=== PATIENT | female | born 1955 | race Caucasian/White ===

== ENCOUNTER → 2016-03-11 | Outpatient (CLI) | payer MEDICARE, MEDICAID ==
[2016-03-11 07:53] LABS: CALCIUM LEVEL 7.9 MG/DL (8.8-10.2); CREATININE FOR GFR 1.04 MG/DL (0.55-1.02); FREE T4 0.74 NG/DL (0.76-1.46); GLOMERULAR FILTRATION RATE 57.4 (>45); POTASSIUM SERUM 4.5 MEQ/L (3.5-5.1)
== END ==
LOC: M LAB 06:36
PROVIDERS: ATTEND Internal Medicine Cardiovascular Disease
DX: E78.2 Mixed hyperlipidemia (principal)

== ENCOUNTER → 2016-04-12 | Outpatient (CLI) | payer MEDICARE, MEDICAID ==
--- NOTE | 2016-04-12 16:06 | REPMRS ---
Patient History The patient states she had a clinical breast exam in 03/2016. Patient is postmenopausal, had previous chemotherapy at age 60, has history of bilateral lung and thyroid cancer at age 59, and is nulliparous. No known family history of cancer. Digital Woman Screen Mammo: April 12, 2016 - Exam #: [id number] Bilateral CC and MLO view(s) were taken. Technologist: Melonie White, Technologist Prior study comparison: February 24, 2015, digital woman screen mammo performed at [facility]. January 06, 2014, digital woman screen mammo performed at [facility]. December 14, 2010, digital mammo diagnostic bilateral, performed at [facility]. FINDINGS: There are scattered fibroglandular densities. There has been no change in the appearance of the mammogram from the prior studies. There is a mild amount of scattered fibroglandular density which is fairly symmetric. There is no interval development of dominant mass, architectural distortion, or clustered microcalcification suggestive of malignancy. ASSESSMENT: BI-RADS/ACR category 1 mammogram. Negative. Recommendation Routine screening mammogram in 1 year (for women over age 40). This mammogram was interpreted with the aid of an FDA-approved computer-aided dectection system. Electronically Signed By: Mo Perry MD 04/12/16 4000
== END ==
LOC: M WHC 14:17
PROVIDERS: ATTEND Nurse Practitioner Women's Health
DX: Z12.31 Encounter for screening mammogram for malignant neoplasm of breast (principal); Z78.0 Asymptomatic menopausal state; Z85.118 Personal history of other malignant neoplasm of bronchus and lung; Z85.850 Personal history of malignant neoplasm of thyroid; Z92.21 Personal history of antineoplastic chemotherapy; Z92.89 Personal history of other medical treatment

== ENCOUNTER → 2016-04-12 | Outpatient (REF) | payer MEDICARE, MEDICAID | LOC: M SFHCWAGY 14:55 | PROVIDERS: ATTEND Nurse Practitioner Women's Health | DX: Z12.4 Encounter for screening for malignant neoplasm of cervix (principal); N95.2 Postmenopausal atrophic vaginitis; Z12.31 Encounter for screening mammogram for malignant neoplasm of breast; Z78.0 Asymptomatic menopausal state; Z85.118 Personal history of other malignant neoplasm of bronchus and lung; Z85.850 Personal history of malignant neoplasm of thyroid; Z92.21 Personal history of antineoplastic chemotherapy; Z92.89 Personal history of other medical treatment | CPT/HCPCS: G0101; G0123; G0202 ==

== ENCOUNTER → 2016-04-13 | Outpatient (CLI) | payer MEDICARE, MEDICAID ==
[2016-04-13 09:19] LABS: FREE T4 0.77 NG/DL (0.76-1.46)
== END ==
LOC: M LAB 08:21
PROVIDERS: ATTEND Family Medicine
DX: E03.9 Hypothyroidism, unspecified (principal)

== ENCOUNTER → 2016-05-06 | Outpatient (CLI) | payer MEDICARE, MEDICAID ==
[~2016-05-06] MED LIST: ISOVUE-370 76% 100ML VIAL (Q9967) As Ordered ONE
--- NOTE | 2016-05-06 10:26 | REP ---
Clinical: Right upper lobe neoplasm. Comparison: 11/09/2015. Technique: Axial contrast enhanced images from the thoracic inlet to the upper abdomen using 100 ml Isovue 370 intravenous contrast material with coronal and sagittal re-formations. Findings: Right upper lobe mass measures approximately 3.6 cm maximal diameter with central surgical clip identified and essentially unchanged from prior examination. Small ill-defined nodules predominately noted in the right hemithorax remains stable. Fibroatelectatic changes in the left upper lobe and right lower lobe are also identified and remain stable. No new or increased mass lesion or nodule is identified. No consolidation. No pleural effusion/reaction or pneumothorax. No significant axillary, hilar, or mediastinal adenopathy is appreciated prevascular lymph nodes are stable and measure up to 9.5 mm diameter. Ascending thoracic aorta is stable and measures up to 4.1 cm maximal diameter. Atherosclerotic changes to the coronary arteries noted. Skeletal structures intact and without focal lesions. Liver appears normal. Impression: 1. Right upper lobe mass, scattered nodules, left upper lobe fibroatelectatic changes essentially unchanged. No new acute process. Signed by Zackary Georges MD 05/06/2016 10:17 A
== END ==
LOC: M RAD 09:02
PROVIDERS: ATTEND Internal Medicine
DX: C34.11 Malignant neoplasm of upper lobe, right bronchus or lung (principal)
CPT/HCPCS: 71260; Q9967

== ENCOUNTER → 2016-08-11 | Outpatient (CLI) | payer MEDICARE, MEDICAID ==
[2016-08-11 10:39] LABS: COMPLEMENT C4 13.7 MG/DL (10-40)
[2016-08-14 00:06] LABS: ALPHA 1 ANTITRYPSIN 157 mg/dL (90-200); D001-IgE D pteronyssinus <0.10 kU/L (Class 0); E001-IgE Cat Epith/Dander < 0.10 kU/L (Class 0); E005-IgE Dog Dander < 0.10 kU/L (Class 0); F002-IgE Milk < 0.10 kU/L (Class 0); F004-IgE Wheat < 0.10 kU/L (Class 0); F013-IgE Peanut < 0.10 kU/L (Class 0); F014-IgE Soybean < 0.10 kU/L (Class 0); F026-IgE Pork < 0.10 kU/L (Class 0); F027-IgE Beef < 0.10 kU/L (Class 0); F245-IgE Egg, Whole < 0.10 kU/L (Class 0); FX02-IgE Food Mix (Sea Foods) Negative (.); G002-IgE Bermuda Grass < 0.10 kU/L (Class 0); G008-IgE Kentucky Bluegrass < 0.10 kU/L (Class 0); M001-IgE Penicillium chrysogen < 0.10 kU/L (Class 0); M002 IgE Cladosporium herbaru < 0.10 kU/L (Class 0); M003 IgE Aspergillus fumigatu < 0.10 kU/L (Class 0); M006-IgE Alternaria alternata < 0.10 kU/L (Class 0); T001-IgE Maple/Box Elder < 0.10 kU/L (Class 0); T007-IgE Oak, White < 0.10 kU/L (Class 0); T008-IgE Elm, American < 0.10 kU/L (Class 0); T015-IgE Ash, White < 0.10 kU/L (Class 0); T041-IgE Hickory, White < 0.10 kU/L (Class 0); W001-IgE Ragweed, Short < 0.10 kU/L (Class 0); W009-IgE Plantain, English < 0.10 kU/L (Class 0); W014-IgE Pigweed, Rough < 0.10 kU/L (Class 0); W018-IgE Sheep Sorrel < 0.10 kU/L (Class 0)
== END ==
LOC: M WUC 08:25
PROVIDERS: ATTEND Allergy & Immunology
DX: J30.1 Allergic rhinitis due to pollen (principal); J32.0 Chronic maxillary sinusitis; H10.45 Other chronic allergic conjunctivitis; R05 Cough; J45.20 Mild intermittent asthma, uncomplicated

== ENCOUNTER → 2016-08-18 | Outpatient (CLI) | payer MEDICARE, MEDICAID ==
[2016-08-18 13:43] LABS: MEAN CORPUSCULAR HEMOGLOBIN 31.1 pg (27.0-33.0); MEAN CORPUSCULAR VOLUME 91.4 fl (80.0-96.0); RED CELL DISTRIBUTION WIDTH 12.1 % (11.5-14.5); WHITE BLOOD COUNT 6.6 K/mm3 (4.0-10.0)
[2016-08-18 14:06] LABS: ALBUMIN 3.8 GM/DL (3.2-5.2); ALBUMIN/GLOBULIN RATIO 0.93 (1.00-1.93); BILIRUBIN,TOTAL 0.3 MG/DL (0.2-1.0); CALCIUM LEVEL 8.5 MG/DL (8.8-10.2); CREATININE FOR GFR 1.05 MG/DL (0.55-1.02); GLOMERULAR FILTRATION RATE 56.7 (>45); POTASSIUM SERUM 4.2 MEQ/L (3.5-5.1); TOTAL PROTEIN 7.9 GM/DL (6.4-8.2)
--- NOTE | 2016-08-18 15:20 | REP ---
Clinical: Lung cancer. Technique: Axial contrast enhanced images from the thoracic inlet to the upper abdomen using 100 ml Isovue 370 intravenous contrast material with multiplanar re-formations. Comparison: 05/06/2016, 11/09/2015 Findings: The lung albrecht demonstrate diffuse chronic interstitial changes including chronic fibroatelectatic changes in the left upper lobe. The right upper lobe mass lesion appears relatively similar to prior examination dated 05/06/2016 but slight increase in size cannot be excluded. Small nodular density in the adjacent superior segment of the right lower lobe is unchanged. No definite new significant nodule or mass lesion is appreciated. No pleural effusion/reaction. No pneumothorax. Tracheobronchial tree is patent. Continued mediastinal and hilar adenopathy (right greater than left) is again noted with focal right hilar lymph node measuring 11 mm short-axis diameter. Mediastinum demonstrates atherosclerotic changes to the thoracic aorta and coronary arteries which remain stable. Mild aneurysmal dilatation to the ascending thoracic aorta again measures 4 cm maximal diameter. No pericardial effusion. Surrounding musculoskeletal structures demonstrate age-related degenerative changes without focal osseous abnormality. Impression: 1. The right upper lobe mass which surrounds the surgical clip is relatively stable although subtle increase in size from the recent prior examination cannot definitively be excluded. Subtle mediastinal and hilar adenopathy remains unchanged. 2. Remainder examination demonstrates diffuse chronic changes which remain stable. No new acute mediastinal or pleuroparenchymal process is appreciated. Signed by Zackary Georges MD 08/18/2016 03:13 P
== END ==
LOC: M RAD 13:01
PROVIDERS: ATTEND Internal Medicine
DX: C34.11 Malignant neoplasm of upper lobe, right bronchus or lung (principal)
CPT/HCPCS: 36415; 71260; 80053; 85027; Q9967

== ENCOUNTER → 2016-11-14 | Outpatient (CLI) | payer MEDICARE, MEDICAID ==
--- NOTE | 2016-11-14 10:28 | REP ---
CT of the chest with IV contrast: Comparison is 08/18/2016. The patients known right upper lobe lung mass containing a surgical clip today measures 33 mm in greatest diameter (previously 38 mm). There is a chronic parenchymal scar in the left upper lobe, unchanged. There is borderline mediastinal adenopathy. The mediastinal nodes have not changed in size or number. There is a 10 mm right hilar node, not significantly changed. There is a nodule in the superior segment right lower lobe today measuring 5 mm and having a ground-glass appearance. As previously had a nodular appearance and measured 8 mm. There is a 4 mm nodule in the medial segment right middle lobe. This previously measured 5 mm. The ascending thoracic aorta measures 4.2 cm transverse diameter and is mildly dilated. This is not significantly changed. Cardiac size is mildly enlarged. There is no pericardial effusion. The visualized upper abdominal contents are unremarkable. There is no adrenal mass. Impression: The right upper lobe lung nodule has decreased in size. The nodule in the superior segment right lower lobe has decreased in size. Chronic scarring in the left upper lobe is unchanged. Borderline mediastinal and hilar adenopathy is unchanged. Right middle lobe nodule has decreased in size. Signed by Zan Torrez MD 11/14/2016 10:20 A
== END ==
LOC: M RAD 09:01
PROVIDERS: ATTEND Internal Medicine
DX: C34.11 Malignant neoplasm of upper lobe, right bronchus or lung (principal)
CPT/HCPCS: 71260; Q9967

== ENCOUNTER → 2017-02-22 | Outpatient (CLI) | payer MEDICARE, MEDICAID ==
[~2017-02-22] MED LIST changes: +ISOVUE-370 76% 100ML VIAL (Q9967) As Ordered; -ISOVUE-370 76% 100ML VIAL (Q9967) As Ordered ONE
[2017-02-22 12:21] LABS: BASO % 0.4 % (0.0-1.0); EOS # 0.3 10^3/uL (0.0-0.50); EOS % 4.2 % (0.0-3.0); HEMOGLOBIN 12.3 g/dl (12.0-16.0); IMMATURE GRANULOCYTE % 0.2 % (0-0); LYMPH # 1.2 10^3/uL (1.5-4.5); LYMPH % 15.2 % (24.0-44.0); MEAN CORPUSCULAR HEMOGLOBIN 30.4 pg (27.0-33.0); MEAN CORPUSCULAR HGB CONC 33.2 g/dl (32.0-36.5); MEAN CORPUSCULAR VOLUME 91.4 fl (80.0-96.0); MONO # 0.8 10^3/uL (0.0-0.8); MONO % 9.2 % (0.0-5.0); NEUTROPHILS # 5.8 10^3/uL (1.8-7.7); NEUTROPHILS % 70.8 % (36.0-66.0); PLATELET COUNT, AUTOMATED 357 10^3/uL (150-450); RED BLOOD COUNT 4.05 10^6/uL (4.00-5.40); RED CELL DISTRIBUTION WIDTH 12.3 % (11.5-14.5); WHITE BLOOD COUNT 8.1 10^3/uL (4.0-10.0)
[2017-02-22 12:41] LABS: ALBUMIN 3.4 GM/DL (3.2-5.2); ALBUMIN/GLOBULIN RATIO 0.71 (1.00-1.93); ALKALINE PHOSPHATASE 108 U/L (45-117); ALT/SGPT 25 U/L (12-78); ANION GAP 7 MEQ/L (8-16); AST/SGOT 28 U/L (7-37); BILIRUBIN,TOTAL 0.3 MG/DL (0.2-1.0); BLOOD UREA NITROGEN 13 MG/DL (7-18); CALCIUM LEVEL 7.8 MG/DL (8.8-10.2); CARBON DIOXIDE LEVEL 33 MEQ/L (21-32); CHLORIDE LEVEL 102 MEQ/L (98-107); CREATININE FOR GFR 0.95 MG/DL (0.55-1.02); GLOMERULAR FILTRATION RATE > 60.0 (>45); GLUCOSE, FASTING 91 MG/DL (80-110); SODIUM LEVEL 142 MEQ/L (136-145); TOTAL PROTEIN 8.2 GM/DL (6.4-8.2)
== END ==
LOC: M RAD 11:45
DX: C34.90 Malignant neoplasm of unspecified part of unspecified bronchus or lung (principal)
CPT/HCPCS: Q9967

== ENCOUNTER → 2017-04-13 | Outpatient (REF) | payer MEDICARE, MEDICAID | LOC: M SFHCWAGY 14:21 | DX: Z01.411 Encounter for gynecological examination (general) (routine) with abnormal findings (principal); Z12.31 Encounter for screening mammogram for malignant neoplasm of breast; Z78.0 Asymptomatic menopausal state; Z12.12 Encounter for screening for malignant neoplasm of rectum ==

== ENCOUNTER → 2017-05-04 | Outpatient (CLI) | payer MEDICARE, OTHER, MEDICAID | LOC: M WHC 13:16 | DX: Z12.31 Encounter for screening mammogram for malignant neoplasm of breast (principal); Z78.0 Asymptomatic menopausal state; Z92.21 Personal history of antineoplastic chemotherapy; Z85.9 Personal history of malignant neoplasm, unspecified | CPT/HCPCS: 77067 ==

== ENCOUNTER 2017-05-05 20:32 | Inpatient (IN) | payer MEDICARE, MEDICAID, OTHER ==
[2017-05-05 21:45] LABS: BASO % 0.3 % (0.0-1.0); EOS # 0.1 10^3/uL (0.0-0.50); EOS % 0.8 % (0.0-3.0); HEMATOCRIT 37.6 % (36.0-47.0); HEMOGLOBIN 12.4 g/dl (12.0-16.0); IMMATURE GRANULOCYTE % 0.5 % (0-3.0); LYMPH # 1.5 10^3/uL (1.5-4.5); LYMPH % 11.6 % (24.0-44.0); MEAN CORPUSCULAR HEMOGLOBIN 30.8 pg (27.0-33.0); MEAN CORPUSCULAR VOLUME 93.5 fl (80.0-96.0); MONO # 0.9 10^3/uL (0.0-0.8); MONO % 6.9 % (0.0-5.0); NEUTROPHILS # 10.4 10^3/uL (1.8-7.7); NEUTROPHILS % 79.9 % (36.0-66.0); PLATELET COUNT, AUTOMATED 433 10^3/uL (150-450); RED BLOOD COUNT 4.02 10^6/uL (4.00-5.40); RED CELL DISTRIBUTION WIDTH 12.5 % (11.5-14.5)
[2017-05-05 22:00] LABS: ANION GAP 13 MEQ/L (8-16); BLOOD UREA NITROGEN 24 MG/DL (7-18); CALCIUM LEVEL 7.3 MG/DL (8.8-10.2); CARBON DIOXIDE LEVEL 24 MEQ/L (21-32); CHLORIDE LEVEL 101 MEQ/L (98-107); CPK CREATINE PHOSPHOKINASE 134 U/L (26-192); CREATININE FOR GFR 1.28 MG/DL (0.55-1.30); GLUCOSE, FASTING 159 MG/DL (70-100); POTASSIUM SERUM 3.3 MEQ/L (3.5-5.1); SODIUM LEVEL 138 MEQ/L (136-145); TROPONIN I < 0.02 NG/ML (< 0.10)
[2017-05-05] MEDS: NS 1,000 ML IV ×2 (22:00→23:04)
[2017-05-05 22:03] LABS: INR 1.18; PROTHROMBIN TIME 15.2 SECONDS (12.4-14.5)
[2017-05-05 22:06] LABS: CK-MB VALUE MASS < 1.0 NG/ML (<3.6); MB/CK RELATIVE INDEX 0.74 (< OR =4)
[2017-05-05] MEDS: levETIRAcetam INJection 1,000 MG in D5W 100 ML IV (22:18)
[2017-05-06] MEDS: ACETAMINOPHEN TAB 650MG DOSE (2X325MG) PO ×3 (00:05→21:19)
[2017-05-06] MEDS: LEVOTHYROXINE 50MCG TABLET (0.05MG) PO (08:29)
[2017-05-06] MEDS: PRIMIDONE 250 MG TAB PO ×2 (08:30→21:36)
[2017-05-06] MEDS: PANTOPRAZOLE 40MG TAB (PROTONIX) PO (08:30)
[2017-05-06] MEDS: MULTIVITAMINS/MINERALS THERAP 1 TAB PO (08:30)
[2017-05-06] MEDS: FUROSEMIDE 40 MG TAB PO (08:32)
[2017-05-06] MEDS: carBAMazepine 200 MG TAB PO ×3 (08:32→21:13)
[2017-05-06] MEDS: METOPROLOL TART 25 MG TABLET PO ×2 (08:32→21:20)
[2017-05-06] MEDS: ASPIRIN 81 MG ENTERIC TAB PO (08:32)
[2017-05-06] MEDS: ENOXAPARIN 30 MG/0.3 ML SYR (J1650) SC (08:33)
[2017-05-06] MEDS: levETIRAcetam 250MG TABLET (KEPPRA) PO ×2 (09:00→21:14)
[2017-05-06] MEDS: NS 1,000 ML IV (12:24)
[2017-05-06] MEDS ORDERED: PROHANCE 279.3MG/ML 5ML VIAL (A9576) As Ordered (12:59)
[2017-05-06] MEDS ORDERED: PROHANCE 279.3MG/ML 15ML VIAL (A9576) As Ordered (13:01)
[2017-05-06] MEDS: ATORVASTATIN 20 MG TAB PO (21:13)
[2017-05-06] MEDS: MONTELUKAST 10 MG TAB PO (21:13)
[2017-05-06] MEDS: CLOPIDOGREL 75 MG TAB PO (21:13)
[2017-05-07] MEDS: NS 1,000 ML IV ×2 (01:38→08:29)
[2017-05-07] MEDS: LEVOTHYROXINE 50MCG TABLET (0.05MG) PO (05:49)
[2017-05-07] MEDS: ACETAMINOPHEN TAB 650MG DOSE (2X325MG) PO ×3 (05:49→17:49)
[2017-05-07] MEDS: METOPROLOL TART 25 MG TABLET PO ×2 (09:00→20:07)
[2017-05-07] MEDS ORDERED: ISOVUE-370 76% 100ML VIAL (Q9967) As Ordered (09:43)
[2017-05-07] MEDS: ENOXAPARIN 30 MG/0.3 ML SYR (J1650) SC (09:46)
[2017-05-07] MEDS: levETIRAcetam 250MG TABLET (KEPPRA) PO ×2 (10:00→20:05)
[2017-05-07] MEDS ORDERED: dexameTHASONE 4 MG/ML 1ML VIAL (J1100) IV (10:00)
[2017-05-07] MEDS: FUROSEMIDE 40 MG TAB PO (10:00)
[2017-05-07] MEDS: MULTIVITAMINS/MINERALS THERAP 1 TAB PO (10:01)
[2017-05-07] MEDS: PANTOPRAZOLE 40MG TAB (PROTONIX) PO (10:01)
[2017-05-07] MEDS: carBAMazepine 200 MG TAB PO ×3 (10:01→20:05)
[2017-05-07] MEDS: dexameTHASONE 4 MG/ML 1ML VIAL (J1100) IV ×2 (10:02→17:49)
[2017-05-07] MEDS: PRIMIDONE 250 MG TAB PO ×2 (11:44→20:05)
[2017-05-07] MEDS: MONTELUKAST 10 MG TAB PO (20:05)
[2017-05-07] MEDS: ATORVASTATIN 20 MG TAB PO (20:05)
[2017-05-08] MEDS: dexameTHASONE 4 MG/ML 1ML VIAL (J1100) IV ×2 (03:00→09:48)
[2017-05-08 05:53] LABS: HEMATOCRIT 34.9 % (36.0-47.0); HEMOGLOBIN 11.4 g/dl (12.0-16.0); MEAN CORPUSCULAR HEMOGLOBIN 30.2 pg (27.0-33.0); MEAN CORPUSCULAR HGB CONC 32.7 g/dl (32.0-36.5); MEAN CORPUSCULAR VOLUME 92.3 fl (80.0-96.0); PLATELET COUNT, AUTOMATED 324 10^3/uL (150-450); RED BLOOD COUNT 3.78 10^6/uL (4.00-5.40); RED CELL DISTRIBUTION WIDTH 12.5 % (11.5-14.5); WHITE BLOOD COUNT 6.9 10^3/uL (4.0-10.0)
[2017-05-08] MEDS: LEVOTHYROXINE 50MCG TABLET (0.05MG) PO (06:01)
[2017-05-08 06:10] LABS: ANION GAP 7 MEQ/L (8-16); BLOOD UREA NITROGEN 16 MG/DL (7-18); CALCIUM LEVEL 7.1 MG/DL (8.8-10.2); CARBON DIOXIDE LEVEL 28 MEQ/L (21-32); CHLORIDE LEVEL 107 MEQ/L (98-107); CREATININE FOR GFR 0.72 MG/DL (0.55-1.30); GLOMERULAR FILTRATION RATE > 60.0 (>45); GLUCOSE, FASTING 115 MG/DL (70-100); POTASSIUM SERUM 3.6 MEQ/L (3.5-5.1); SODIUM LEVEL 142 MEQ/L (136-145)
[2017-05-08] MEDS: METOPROLOL TART 25 MG TABLET PO (09:46)
[2017-05-08] MEDS: levETIRAcetam 250MG TABLET (KEPPRA) PO (09:47)
[2017-05-08] MEDS: carBAMazepine 200 MG TAB PO ×2 (09:48→16:10)
[2017-05-08] MEDS: PANTOPRAZOLE 40MG TAB (PROTONIX) PO (09:48)
[2017-05-08] MEDS: MULTIVITAMINS/MINERALS THERAP 1 TAB PO (09:48)
[2017-05-08] MEDS: FUROSEMIDE 40 MG TAB PO (09:48)
[2017-05-08 09:49] LABS: CARBAMAZEPINE (TEGRETOL) LEVEL 10.7 UG/ML (4.0-10.0)
[2017-05-08] MEDS: ACETAMINOPHEN TAB 650MG DOSE (2X325MG) PO (12:30)
[2017-05-08] MEDS: PRIMIDONE 250 MG TAB PO (14:35)
== END 2017-05-08 16:28 | disposition home or self-care (01) | DRG 55 ==
LOC: M MSPAV 05-06 15:58 → M ED 20:32 → M ED INP 23:55
DX: C79.31 Secondary malignant neoplasm of brain (principal); G40.419 Other generalized epilepsy and epileptic syndromes, intractable, without status epilepticus; C34.90 Malignant neoplasm of unspecified part of unspecified bronchus or lung; F70 Mild intellectual disabilities; C73 Malignant neoplasm of thyroid gland; E03.9 Hypothyroidism, unspecified; J44.9 Chronic obstructive pulmonary disease, unspecified; Z79.899 Other long term (current) drug therapy

== ENCOUNTER → 2017-09-15 | Outpatient (CLI) | payer MEDICARE, MEDICAID | LOC: M PLARAD 08:56 | DX: C79.31 Secondary malignant neoplasm of brain (principal) | CPT/HCPCS: 70553 ==

== ENCOUNTER 2017-09-25 00:14 | Inpatient (IN) | payer MEDICARE, MEDICAID ==
[2017-09-25] MEDS: NS 500 ML IV (00:45)
[2017-09-25 01:07] LABS: BASO % 0.2 % (0.0-1.0); HEMATOCRIT 34.2 % (36.0-47.0); HEMOGLOBIN 11.7 g/dl (12.0-15.5); IMMATURE GRANULOCYTE % 0.6 % (0-3.0); LYMPH # 0.5 10^3/uL (1.5-4.5); LYMPH % 2.2 % (24.0-44.0); MEAN CORPUSCULAR HEMOGLOBIN 30.6 pg (27.0-33.0); MEAN CORPUSCULAR HGB CONC 34.2 g/dl (32.0-36.5); MEAN CORPUSCULAR VOLUME 89.5 fl (80.0-96.0); MONO # 1.4 10^3/uL (0.0-0.8); MONO % 5.9 % (0.0-5.0); NEUTROPHILS # 21.9 10^3/uL (1.8-7.7); NEUTROPHILS % 91.1 % (36.0-66.0); PLATELET COUNT, AUTOMATED 445 10^3/uL (150-450); RED BLOOD COUNT 3.82 10^6/uL (4.00-5.40); RED CELL DISTRIBUTION WIDTH 12.6 % (11.5-14.5)
[2017-09-25 01:31] LABS: LACTIC ACID SEPSIS PROTOCOL 1.5 MMOL/L (0.4-2.0)
[2017-09-25 01:32] LABS: ANION GAP 9 MEQ/L (8-16); BLOOD UREA NITROGEN 15 MG/DL (7-18); CALCIUM LEVEL 7.1 MG/DL (8.8-10.2); CARBAMAZEPINE (TEGRETOL) LEVEL 10.9 UG/ML (4.0-10.0); CARBON DIOXIDE LEVEL 29 MEQ/L (21-32); CHLORIDE LEVEL 102 MEQ/L (98-107); CREATININE FOR GFR 1.36 MG/DL (0.55-1.30); GLOMERULAR FILTRATION RATE 41.9 (>45); GLUCOSE, FASTING 147 MG/DL (70-100); POTASSIUM SERUM 2.9 MEQ/L (3.5-5.1); SODIUM LEVEL 140 MEQ/L (136-145)
[2017-09-25] MEDS: POTASSIUM CHLORIDE 10 MEQ SR TABLET PO ×3 (01:45→18:35)
[2017-09-25] MEDS: metroNIDAZOLE (FLAGYL) 500 MG TAB PO (02:30)
[2017-09-25] MEDS: VANCOMYCIN ORAL SOL 250MG/5ML ORAL SYRINGE PO ×4 (04:00→18:35)
[2017-09-25] MEDS ORDERED: IPRATROPIUM 0.5MG/ALBUTEROL 2.5MG INH SOL UD 3ML (DUONEB)(J7620) NEB (06:00)
[2017-09-25] MEDS: NS 1,000 ML IV ×4 (06:41→20:18)
[2017-09-25] MEDS: KCL 10MEQ/100ML SWI (KRUN) 10 MEQ in APPROPRIATE DILUENT 1 EA IV ×4 (06:42→10:36)
[2017-09-25 07:16] LABS: PHOSPHORUS LEVEL 3.7 MG/DL (2.5-4.9)
[2017-09-25 07:16] LABS: MAGNESIUM LEVEL 1.7 MG/DL (1.8-2.4)
[2017-09-25 07:20] LABS: ALBUMIN 2.7 GM/DL (3.2-5.2); ALBUMIN/GLOBULIN RATIO 0.61 (1.00-1.93); ALKALINE PHOSPHATASE 81 U/L (45-117); ALT/SGPT 48 U/L (12-78); AST/SGOT 95 U/L (7-37); BILIRUBIN,DIRECT < 0.1 MG/DL (0.0-0.2); BILIRUBIN,TOTAL 0.3 MG/DL (0.2-1.0); TOTAL PROTEIN 7.1 GM/DL (6.4-8.2)
[2017-09-25] MEDS: FAMOTIDINE 20 MG TAB PO ×2 (08:41→20:19)
[2017-09-25] MEDS: ENOXAPARIN 40 MG/0.4 ML SYRINGE (J1650) SC (08:41)
[2017-09-25] MEDS: carBAMazepine 200 MG TAB PO ×2 (08:41→20:18)
[2017-09-25] MEDS: MULTIVITAMINS/MINERALS THERAP 1 TAB PO (08:41)
[2017-09-25] MEDS: CLOPIDOGREL 75 MG TAB PO (08:41)
[2017-09-25] MEDS: levETIRAcetam 250MG TABLET (KEPPRA) PO ×2 (08:41→20:18)
[2017-09-25] MEDS ORDERED: carBAMazepine 200 MG TAB PO (09:00)
[2017-09-25] MEDS ORDERED: METOPROLOL TART 12.5 MG PER 1/2 TAB PO (09:00)
[2017-09-25] MEDS ORDERED: metroNIDAZOLE (FLAGYL) 500 MG TAB PO (09:00)
[2017-09-25] MEDS: IPRATROPIUM 0.06% NASAL SPRAY 15 ML (ATROVENT) (09:00)
[2017-09-25] MEDS: PRIMIDONE 250 MG TAB PO ×2 (09:45→22:22)
[2017-09-25] MEDS: metroNIDAZOLE 500 MG in APPROPRIATE DILUENT 1 EA IV ×2 (09:49→16:13)
[2017-09-25] MEDS: MAG SULF 1GM/100ML (MAG RUN) 1 GM in APPROPRIATE DILUENT 1 EA IV (12:52)
[2017-09-25] MEDS: ATORVASTATIN 20 MG TAB PO (20:18)
[2017-09-25] MEDS: MONTELUKAST 10 MG TAB PO (20:18)
[2017-09-25] MEDS: LEVOTHYROXINE 50MCG TABLET (0.05MG) PO (20:18)
[2017-09-25] MEDS: GILOTRIF PO (22:22)
[2017-09-25 23:19] LABS: POTASSIUM SERUM 3.8 MEQ/L (3.5-5.1)
[2017-09-26] MEDS: metroNIDAZOLE 500 MG in APPROPRIATE DILUENT 1 EA IV ×3 (01:00→16:04)
[2017-09-26] MEDS: VANCOMYCIN ORAL SOL 250MG/5ML ORAL SYRINGE PO ×4 (01:00→17:00)
[2017-09-26] MEDS: IPRATROPIUM 0.06% NASAL SPRAY 15 ML (ATROVENT) ×3 (03:42→21:06)
[2017-09-26] MEDS: NS 1,000 ML IV ×2 (03:42→21:05)
[2017-09-26 06:23] LABS: BASO % 0.3 % (0.0-1.0); EOS # 0.4 10^3/uL (0.0-0.50); EOS % 2.4 % (0.0-3.0); HEMATOCRIT 31.2 % (36.0-47.0); HEMOGLOBIN 10.5 g/dl (12.0-15.5); IMMATURE GRANULOCYTE % 0.6 % (0-3.0); LYMPH % 6.5 % (24.0-44.0); MEAN CORPUSCULAR HEMOGLOBIN 30.3 pg (27.0-33.0); MEAN CORPUSCULAR HGB CONC 33.7 g/dl (32.0-36.5); MEAN CORPUSCULAR VOLUME 89.9 fl (80.0-96.0); MONO # 0.8 10^3/uL (0.0-0.8); MONO % 5.2 % (0.0-5.0); NEUTROPHILS # 12.6 10^3/uL (1.8-7.7); PLATELET COUNT, AUTOMATED 368 10^3/uL (150-450); RED BLOOD COUNT 3.47 10^6/uL (4.00-5.40); WHITE BLOOD COUNT 14.8 10^3/uL (4.0-10.0)
[2017-09-26 06:47] LABS: ALBUMIN 2.4 GM/DL (3.2-5.2); ALBUMIN/GLOBULIN RATIO 0.69 (1.00-1.93); ALKALINE PHOSPHATASE 73 U/L (45-117); ALT/SGPT 42 U/L (12-78); ANION GAP 8 MEQ/L (8-16); AST/SGOT 72 U/L (7-37); BILIRUBIN,TOTAL 0.3 MG/DL (0.2-1.0); BLOOD UREA NITROGEN 7 MG/DL (7-18); CALCIUM LEVEL 7.3 MG/DL (8.8-10.2); CARBON DIOXIDE LEVEL 25 MEQ/L (21-32); CHLORIDE LEVEL 111 MEQ/L (98-107); CREATININE FOR GFR 0.67 MG/DL (0.55-1.30); GLUCOSE, FASTING 92 MG/DL (70-100); POTASSIUM SERUM 3.8 MEQ/L (3.5-5.1); SODIUM LEVEL 144 MEQ/L (136-145); TOTAL PROTEIN 5.9 GM/DL (6.4-8.2)
[2017-09-26 06:50] LABS: GLOMERULAR FILTRATION RATE > 60.0 (>45)
[2017-09-26] MEDS: PRIMIDONE 250 MG TAB PO ×2 (08:44→21:07)
[2017-09-26] MEDS: FAMOTIDINE 20 MG TAB PO ×2 (08:44→21:07)
[2017-09-26] MEDS: carBAMazepine 200 MG TAB PO ×2 (08:44→21:07)
[2017-09-26] MEDS: CLOPIDOGREL 75 MG TAB PO (08:44)
[2017-09-26] MEDS: levETIRAcetam 250MG TABLET (KEPPRA) PO ×2 (08:44→21:07)
[2017-09-26] MEDS: MULTIVITAMINS/MINERALS THERAP 1 TAB PO (08:44)
[2017-09-26] MEDS: ENOXAPARIN 40 MG/0.4 ML SYRINGE (J1650) SC (08:45)
[2017-09-26] MEDS: LEVOTHYROXINE 50MCG TABLET (0.05MG) PO (21:07)
[2017-09-26] MEDS: ATORVASTATIN 20 MG TAB PO (21:07)
[2017-09-26] MEDS: MONTELUKAST 10 MG TAB PO (21:07)
[2017-09-26] MEDS: GILOTRIF PO (21:08)
[2017-09-27] MEDS: metroNIDAZOLE 500 MG in APPROPRIATE DILUENT 1 EA IV ×3 (00:52→18:17)
[2017-09-27] MEDS: VANCOMYCIN ORAL SOL 250MG/5ML ORAL SYRINGE PO ×4 (00:52→19:24)
[2017-09-27] MEDS: ACETAMINOPHEN TAB 650MG DOSE (2X325MG) PO (00:53)
[2017-09-27] MEDS: NS 1,000 ML IV ×2 (01:00→11:39)
[2017-09-27 07:32] LABS: CARBAMAZEPINE (TEGRETOL) LEVEL 8.3 UG/ML (4.0-10.0)
[2017-09-27 08:23] LABS: BASO % 0.4 % (0.0-1.0); EOS # 0.4 10^3/uL (0.0-0.50); EOS % 3.8 % (0.0-3.0); HEMATOCRIT 31.3 % (36.0-47.0); HEMOGLOBIN 10.5 g/dl (12.0-15.5); IMMATURE GRANULOCYTE % 0.4 % (0-3.0); LYMPH # 1.1 10^3/uL (1.5-4.5); LYMPH % 11.6 % (24.0-44.0); MEAN CORPUSCULAR HEMOGLOBIN 30.6 pg (27.0-33.0); MEAN CORPUSCULAR HGB CONC 33.5 g/dl (32.0-36.5); MEAN CORPUSCULAR VOLUME 91.3 fl (80.0-96.0); MONO # 0.6 10^3/uL (0.0-0.8); MONO % 6.4 % (0.0-5.0); NEUTROPHILS # 7.4 10^3/uL (1.8-7.7); NEUTROPHILS % 77.4 % (36.0-66.0); PLATELET COUNT, AUTOMATED 414 10^3/uL (150-450); RED BLOOD COUNT 3.43 10^6/uL (4.00-5.40); WHITE BLOOD COUNT 9.6 10^3/uL (4.0-10.0)
[2017-09-27 08:31] LABS: ANION GAP 9 MEQ/L (8-16); BLOOD UREA NITROGEN 4 MG/DL (7-18); CALCIUM LEVEL 7.3 MG/DL (8.8-10.2); CARBON DIOXIDE LEVEL 25 MEQ/L (21-32); CHLORIDE LEVEL 113 MEQ/L (98-107); CREATININE FOR GFR 0.71 MG/DL (0.55-1.30); GLOMERULAR FILTRATION RATE > 60.0 (>45); GLUCOSE, FASTING 85 MG/DL (70-100); POTASSIUM SERUM 3.7 MEQ/L (3.5-5.1); SODIUM LEVEL 147 MEQ/L (136-145)
[2017-09-27] MEDS: carBAMazepine 200 MG TAB PO ×2 (08:47→19:59)
[2017-09-27] MEDS: CLOPIDOGREL 75 MG TAB PO (08:47)
[2017-09-27] MEDS: MULTIVITAMINS/MINERALS THERAP 1 TAB PO (08:47)
[2017-09-27] MEDS: PRIMIDONE 250 MG TAB PO ×2 (08:48→19:59)
[2017-09-27] MEDS: levETIRAcetam 250MG TABLET (KEPPRA) PO ×2 (08:48→19:58)
[2017-09-27] MEDS: FAMOTIDINE 20 MG TAB PO ×2 (08:48→19:59)
[2017-09-27] MEDS: ENOXAPARIN 40 MG/0.4 ML SYRINGE (J1650) SC (08:48)
[2017-09-27] MEDS: IPRATROPIUM 0.06% NASAL SPRAY 15 ML (ATROVENT) ×2 (08:49→19:59)
[2017-09-27] MEDS: ATORVASTATIN 20 MG TAB PO (19:58)
[2017-09-27] MEDS: MONTELUKAST 10 MG TAB PO (19:58)
[2017-09-27] MEDS: LEVOTHYROXINE 50MCG TABLET (0.05MG) PO (19:58)
[2017-09-27] MEDS: GILOTRIF PO (19:58)
[2017-09-28] MEDS: VANCOMYCIN ORAL SOL 250MG/5ML ORAL SYRINGE PO ×3 (00:07→10:58)
[2017-09-28] MEDS: metroNIDAZOLE 500 MG in APPROPRIATE DILUENT 1 EA IV ×2 (00:59→09:02)
[2017-09-28 07:11] LABS: BASO % 0.5 % (0.0-1.0); EOS # 0.3 10^3/uL (0.0-0.50); HEMATOCRIT 32.6 % (36.0-47.0); HEMOGLOBIN 10.8 g/dl (12.0-15.5); IMMATURE GRANULOCYTE % 0.8 % (0-3.0); LYMPH # 0.8 10^3/uL (1.5-4.5); LYMPH % 12.8 % (24.0-44.0); MEAN CORPUSCULAR HEMOGLOBIN 30.3 pg (27.0-33.0); MEAN CORPUSCULAR HGB CONC 33.1 g/dl (32.0-36.5); MEAN CORPUSCULAR VOLUME 91.3 fl (80.0-96.0); MONO # 0.6 10^3/uL (0.0-0.8); MONO % 8.7 % (0.0-5.0); NEUTROPHILS # 4.7 10^3/uL (1.8-7.7); NEUTROPHILS % 73.2 % (36.0-66.0); PLATELET COUNT, AUTOMATED 412 10^3/uL (150-450); RED BLOOD COUNT 3.57 10^6/uL (4.00-5.40); RED CELL DISTRIBUTION WIDTH 12.9 % (11.5-14.5); WHITE BLOOD COUNT 6.4 10^3/uL (4.0-10.0)
[2017-09-28 07:55] LABS: ANION GAP 7 MEQ/L (8-16); BLOOD UREA NITROGEN 4 MG/DL (7-18); CALCIUM LEVEL 7.3 MG/DL (8.8-10.2); CARBAMAZEPINE (TEGRETOL) LEVEL 6.8 UG/ML (4.0-10.0); CARBON DIOXIDE LEVEL 28 MEQ/L (21-32); CHLORIDE LEVEL 111 MEQ/L (98-107); CREATININE FOR GFR 0.73 MG/DL (0.55-1.30); GLOMERULAR FILTRATION RATE > 60.0 (>45); GLUCOSE, FASTING 88 MG/DL (70-100); POTASSIUM SERUM 3.5 MEQ/L (3.5-5.1); SODIUM LEVEL 146 MEQ/L (136-145)
[2017-09-28] MEDS: levETIRAcetam 250MG TABLET (KEPPRA) PO ×2 (09:00→20:18)
[2017-09-28] MEDS: CLOPIDOGREL 75 MG TAB PO (09:00)
[2017-09-28] MEDS: ENOXAPARIN 40 MG/0.4 ML SYRINGE (J1650) SC (09:00)
[2017-09-28] MEDS: FAMOTIDINE 20 MG TAB PO ×2 (09:01→20:18)
[2017-09-28] MEDS: IPRATROPIUM 0.06% NASAL SPRAY 15 ML (ATROVENT) ×2 (09:01→20:19)
[2017-09-28] MEDS: PRIMIDONE 250 MG TAB PO ×2 (09:01→20:18)
[2017-09-28] MEDS: MULTIVITAMINS/MINERALS THERAP 1 TAB PO (09:01)
[2017-09-28] MEDS: carBAMazepine 200 MG TAB PO ×2 (09:01→20:18)
[2017-09-28] MEDS: NS 0.45% 1,000 ML IV (11:01)
[2017-09-28] MEDS: FIDAXOMICIN 200 MG TAB (DIFICID) PO (20:17)
[2017-09-28] MEDS: LEVOTHYROXINE 50MCG TABLET (0.05MG) PO (20:18)
[2017-09-28] MEDS: MONTELUKAST 10 MG TAB PO (20:18)
[2017-09-28] MEDS: ATORVASTATIN 20 MG TAB PO (20:18)
[2017-09-28] MEDS: GILOTRIF PO (20:21)
[2017-09-29] MEDS: NS 0.45% 1,000 ML IV (04:45)
[2017-09-29 06:19] LABS: BASO % 0.4 % (0.0-1.0); EOS # 0.3 10^3/uL (0.0-0.50); EOS % 3.7 % (0.0-3.0); HEMATOCRIT 31.3 % (36.0-47.0); HEMOGLOBIN 10.6 g/dl (12.0-15.5); IMMATURE GRANULOCYTE % 0.5 % (0-3.0); LYMPH % 13.6 % (24.0-44.0); MEAN CORPUSCULAR HEMOGLOBIN 30.1 pg (27.0-33.0); MEAN CORPUSCULAR HGB CONC 33.9 g/dl (32.0-36.5); MEAN CORPUSCULAR VOLUME 88.9 fl (80.0-96.0); MONO # 0.7 10^3/uL (0.0-0.8); MONO % 9.1 % (0.0-5.0); NEUTROPHILS # 5.3 10^3/uL (1.8-7.7); NEUTROPHILS % 72.7 % (36.0-66.0); PLATELET COUNT, AUTOMATED 416 10^3/uL (150-450); RED BLOOD COUNT 3.52 10^6/uL (4.00-5.40); WHITE BLOOD COUNT 7.3 10^3/uL (4.0-10.0)
[2017-09-29 06:30] LABS: ANION GAP 7 MEQ/L (8-16); BLOOD UREA NITROGEN 3 MG/DL (7-18); CALCIUM LEVEL 7.3 MG/DL (8.8-10.2); CARBON DIOXIDE LEVEL 26 MEQ/L (21-32); CHLORIDE LEVEL 112 MEQ/L (98-107); GLOMERULAR FILTRATION RATE > 60.0 (>45); GLUCOSE, FASTING 91 MG/DL (70-100); POTASSIUM SERUM 3.1 MEQ/L (3.5-5.1); SODIUM LEVEL 145 MEQ/L (136-145)
[2017-09-29 06:43] LABS: CARBAMAZEPINE (TEGRETOL) LEVEL 7.4 UG/ML (4.0-10.0)
[2017-09-29] MEDS: PRIMIDONE 250 MG TAB PO ×2 (09:35→20:58)
[2017-09-29] MEDS: IPRATROPIUM 0.06% NASAL SPRAY 15 ML (ATROVENT) ×2 (09:35→20:58)
[2017-09-29] MEDS: ENOXAPARIN 40 MG/0.4 ML SYRINGE (J1650) SC (09:35)
[2017-09-29] MEDS: CLOPIDOGREL 75 MG TAB PO (09:36)
[2017-09-29] MEDS: FIDAXOMICIN 200 MG TAB (DIFICID) PO ×2 (09:36→20:57)
[2017-09-29] MEDS: levETIRAcetam 250MG TABLET (KEPPRA) PO ×2 (09:36→20:57)
[2017-09-29] MEDS: MULTIVITAMINS/MINERALS THERAP 1 TAB PO (09:36)
[2017-09-29] MEDS: FAMOTIDINE 20 MG TAB PO ×2 (09:36→20:58)
[2017-09-29] MEDS: carBAMazepine 200 MG TAB PO ×2 (09:36→20:57)
[2017-09-29] MEDS: POTASSIUM CHLORIDE INJ 40 MEQ in NS 0.45% 1,000 ML IV (09:42)
[2017-09-29] MEDS: GILOTRIF PO (20:57)
[2017-09-29] MEDS: MONTELUKAST 10 MG TAB PO (20:57)
[2017-09-29] MEDS: ATORVASTATIN 20 MG TAB PO (20:58)
[2017-09-29] MEDS: LEVOTHYROXINE 50MCG TABLET (0.05MG) PO (20:58)
[2017-09-30] MEDS: POTASSIUM CHLORIDE INJ 40 MEQ in NS 0.45% 1,000 ML IV ×2 (00:03→13:49)
[2017-09-30 08:05] LABS: BASO % 0.5 % (0.0-1.0); EOS # 0.3 10^3/uL (0.0-0.50); EOS % 4.7 % (0.0-3.0); HEMOGLOBIN 11.3 g/dl (12.0-15.5); IMMATURE GRANULOCYTE % 0.8 % (0-3.0); LYMPH # 1.1 10^3/uL (1.5-4.5); LYMPH % 16.1 % (24.0-44.0); MEAN CORPUSCULAR HEMOGLOBIN 30.1 pg (27.0-33.0); MEAN CORPUSCULAR HGB CONC 33.2 g/dl (32.0-36.5); MEAN CORPUSCULAR VOLUME 90.4 fl (80.0-96.0); MONO # 0.5 10^3/uL (0.0-0.8); NEUTROPHILS # 4.6 10^3/uL (1.8-7.7); NEUTROPHILS % 69.9 % (36.0-66.0); PLATELET COUNT, AUTOMATED 433 10^3/uL (150-450); RED BLOOD COUNT 3.76 10^6/uL (4.00-5.40); RED CELL DISTRIBUTION WIDTH 13.2 % (11.5-14.5); WHITE BLOOD COUNT 6.5 10^3/uL (4.0-10.0)
[2017-09-30 08:20] LABS: ANION GAP 9 MEQ/L (8-16); BLOOD UREA NITROGEN 2 MG/DL (7-18); CALCIUM LEVEL 7.5 MG/DL (8.8-10.2); CARBON DIOXIDE LEVEL 25 MEQ/L (21-32); CHLORIDE LEVEL 112 MEQ/L (98-107); CREATININE FOR GFR 0.76 MG/DL (0.55-1.30); GLOMERULAR FILTRATION RATE > 60.0 (>45); GLUCOSE, FASTING 82 MG/DL (70-100); POTASSIUM SERUM 3.7 MEQ/L (3.5-5.1); SODIUM LEVEL 146 MEQ/L (136-145)
[2017-09-30] MEDS: FIDAXOMICIN 200 MG TAB (DIFICID) PO ×2 (08:47→21:03)
[2017-09-30] MEDS: ENOXAPARIN 40 MG/0.4 ML SYRINGE (J1650) SC (08:47)
[2017-09-30] MEDS: MULTIVITAMINS/MINERALS THERAP 1 TAB PO (08:47)
[2017-09-30] MEDS: levETIRAcetam 250MG TABLET (KEPPRA) PO ×2 (08:47→21:03)
[2017-09-30] MEDS: CLOPIDOGREL 75 MG TAB PO (08:47)
[2017-09-30] MEDS: PRIMIDONE 250 MG TAB PO ×2 (08:47→21:03)
[2017-09-30] MEDS: carBAMazepine 200 MG TAB PO ×2 (08:47→21:03)
[2017-09-30] MEDS: FAMOTIDINE 20 MG TAB PO ×2 (08:47→21:03)
[2017-09-30] MEDS: IPRATROPIUM 0.06% NASAL SPRAY 15 ML (ATROVENT) ×2 (09:00→21:04)
[2017-09-30] MEDS: ATORVASTATIN 20 MG TAB PO (21:03)
[2017-09-30] MEDS: GILOTRIF PO (21:03)
[2017-09-30] MEDS: MONTELUKAST 10 MG TAB PO (21:03)
[2017-09-30] MEDS: LEVOTHYROXINE 50MCG TABLET (0.05MG) PO (21:03)
[2017-10-01] MEDS: POTASSIUM CHLORIDE INJ 40 MEQ in NS 0.45% 1,000 ML IV ×2 (03:53→17:13)
[2017-10-01 06:21] LABS: BASO # 0.1 10^3/uL (0.0-0.2); BASO % 0.7 % (0.0-1.0); EOS # 0.4 10^3/uL (0.0-0.50); HEMATOCRIT 33.4 % (36.0-47.0); HEMOGLOBIN 11.1 g/dl (12.0-15.5); IMMATURE GRANULOCYTE % 0.7 % (0-3.0); LYMPH # 1.1 10^3/uL (1.5-4.5); LYMPH % 14.9 % (24.0-44.0); MEAN CORPUSCULAR HEMOGLOBIN 30.2 pg (27.0-33.0); MEAN CORPUSCULAR HGB CONC 33.2 g/dl (32.0-36.5); MONO # 0.6 10^3/uL (0.0-0.8); MONO % 8.5 % (0.0-5.0); NEUTROPHILS # 5.3 10^3/uL (1.8-7.7); NEUTROPHILS % 70.2 % (36.0-66.0); PLATELET COUNT, AUTOMATED 445 10^3/uL (150-450); RED BLOOD COUNT 3.67 10^6/uL (4.00-5.40); RED CELL DISTRIBUTION WIDTH 13.3 % (11.5-14.5); WHITE BLOOD COUNT 7.5 10^3/uL (4.0-10.0)
[2017-10-01 06:41] LABS: ANION GAP 7 MEQ/L (8-16); BLOOD UREA NITROGEN 3 MG/DL (7-18); CALCIUM LEVEL 7.6 MG/DL (8.8-10.2); CARBON DIOXIDE LEVEL 26 MEQ/L (21-32); CHLORIDE LEVEL 112 MEQ/L (98-107); CREATININE FOR GFR 0.74 MG/DL (0.55-1.30); GLOMERULAR FILTRATION RATE > 60.0 (>45); GLUCOSE, FASTING 91 MG/DL (70-100); SODIUM LEVEL 145 MEQ/L (136-145)
[2017-10-01] MEDS: MULTIVITAMINS/MINERALS THERAP 1 TAB PO (08:34)
[2017-10-01] MEDS: FIDAXOMICIN 200 MG TAB (DIFICID) PO ×2 (08:34→20:50)
[2017-10-01] MEDS: ENOXAPARIN 40 MG/0.4 ML SYRINGE (J1650) SC (08:34)
[2017-10-01] MEDS: CLOPIDOGREL 75 MG TAB PO (08:34)
[2017-10-01] MEDS: carBAMazepine 200 MG TAB PO ×2 (08:35→20:50)
[2017-10-01] MEDS: FAMOTIDINE 20 MG TAB PO ×2 (08:35→20:50)
[2017-10-01] MEDS: levETIRAcetam 250MG TABLET (KEPPRA) PO ×2 (08:35→20:50)
[2017-10-01] MEDS: IPRATROPIUM 0.06% NASAL SPRAY 15 ML (ATROVENT) ×2 (08:35→20:50)
[2017-10-01] MEDS: PRIMIDONE 250 MG TAB PO ×2 (09:58→20:50)
[2017-10-01] MEDS: GILOTRIF PO (20:49)
[2017-10-01] MEDS: LEVOTHYROXINE 50MCG TABLET (0.05MG) PO (20:50)
[2017-10-01] MEDS: ATORVASTATIN 20 MG TAB PO (20:50)
[2017-10-01] MEDS: MONTELUKAST 10 MG TAB PO (20:50)
[2017-10-02 06:11] LABS: ANION GAP 6 MEQ/L (8-16); BLOOD UREA NITROGEN 5 MG/DL (7-18); CALCIUM LEVEL 7.7 MG/DL (8.8-10.2); CARBON DIOXIDE LEVEL 26 MEQ/L (21-32); CHLORIDE LEVEL 111 MEQ/L (98-107); CREATININE FOR GFR 0.79 MG/DL (0.55-1.30); GLOMERULAR FILTRATION RATE > 60.0 (>45); GLUCOSE, FASTING 88 MG/DL (70-100); POTASSIUM SERUM 4.4 MEQ/L (3.5-5.1); SODIUM LEVEL 143 MEQ/L (136-145)
[2017-10-02 06:12] LABS: BASO % 0.5 % (0.0-1.0); EOS # 0.5 10^3/uL (0.0-0.50); EOS % 5.6 % (0.0-3.0); HEMATOCRIT 32.9 % (36.0-47.0); HEMOGLOBIN 11.1 g/dl (12.0-15.5); IMMATURE GRANULOCYTE % 0.6 % (0-3.0); LYMPH # 1.6 10^3/uL (1.5-4.5); LYMPH % 18.6 % (24.0-44.0); MEAN CORPUSCULAR HEMOGLOBIN 30.6 pg (27.0-33.0); MEAN CORPUSCULAR HGB CONC 33.7 g/dl (32.0-36.5); MEAN CORPUSCULAR VOLUME 90.6 fl (80.0-96.0); MONO # 0.6 10^3/uL (0.0-0.8); MONO % 7.5 % (0.0-5.0); NEUTROPHILS # 5.7 10^3/uL (1.8-7.7); NEUTROPHILS % 67.2 % (36.0-66.0); PLATELET COUNT, AUTOMATED 459 10^3/uL (150-450); RED BLOOD COUNT 3.63 10^6/uL (4.00-5.40); RED CELL DISTRIBUTION WIDTH 13.6 % (11.5-14.5); WHITE BLOOD COUNT 8.5 10^3/uL (4.0-10.0)
[2017-10-02] MEDS: POTASSIUM CHLORIDE INJ 40 MEQ in NS 0.45% 1,000 ML IV (07:00)
[2017-10-02] MEDS: MULTIVITAMINS/MINERALS THERAP 1 TAB PO (07:54)
[2017-10-02] MEDS: levETIRAcetam 250MG TABLET (KEPPRA) PO ×2 (07:54→21:00)
[2017-10-02] MEDS: FIDAXOMICIN 200 MG TAB (DIFICID) PO ×2 (07:54→21:00)
[2017-10-02] MEDS: PRIMIDONE 250 MG TAB PO ×2 (07:54→21:00)
[2017-10-02] MEDS: FAMOTIDINE 20 MG TAB PO ×2 (07:54→21:00)
[2017-10-02] MEDS: CLOPIDOGREL 75 MG TAB PO (07:54)
[2017-10-02] MEDS: IPRATROPIUM 0.06% NASAL SPRAY 15 ML (ATROVENT) ×2 (07:55→21:00)
[2017-10-02] MEDS: carBAMazepine 200 MG TAB PO ×2 (07:56→21:00)
[2017-10-02] MEDS: ENOXAPARIN 40 MG/0.4 ML SYRINGE (J1650) SC (07:57)
[2017-10-02] MEDS: MONTELUKAST 10 MG TAB PO (21:00)
[2017-10-02] MEDS: ATORVASTATIN 20 MG TAB PO (21:00)
[2017-10-02] MEDS: LEVOTHYROXINE 50MCG TABLET (0.05MG) PO (21:00)
[2017-10-02] MEDS: GILOTRIF PO (21:01)
[2017-10-03 07:03] LABS: BASO % 0.4 % (0.0-1.0); EOS # 0.4 10^3/uL (0.0-0.50); EOS % 4.5 % (0.0-3.0); HEMATOCRIT 34.1 % (36.0-47.0); HEMOGLOBIN 11.2 g/dl (12.0-15.5); IMMATURE GRANULOCYTE % 0.4 % (0-3.0); MEAN CORPUSCULAR HEMOGLOBIN 29.9 pg (27.0-33.0); MEAN CORPUSCULAR HGB CONC 32.8 g/dl (32.0-36.5); MEAN CORPUSCULAR VOLUME 90.9 fl (80.0-96.0); MONO # 0.6 10^3/uL (0.0-0.8); MONO % 6.7 % (0.0-5.0); NEUTROPHILS # 6.3 10^3/uL (1.8-7.7); PLATELET COUNT, AUTOMATED 476 10^3/uL (150-450); RED BLOOD COUNT 3.75 10^6/uL (4.00-5.40); RED CELL DISTRIBUTION WIDTH 13.8 % (11.5-14.5); WHITE BLOOD COUNT 8.3 10^3/uL (4.0-10.0)
[2017-10-03 07:19] LABS: ANION GAP 8 MEQ/L (8-16); BLOOD UREA NITROGEN 5 MG/DL (7-18); CARBON DIOXIDE LEVEL 23 MEQ/L (21-32); CHLORIDE LEVEL 111 MEQ/L (98-107); CREATININE FOR GFR 0.83 MG/DL (0.55-1.30); GLOMERULAR FILTRATION RATE > 60.0 (>45); GLUCOSE, FASTING 91 MG/DL (70-100); POTASSIUM SERUM 3.9 MEQ/L (3.5-5.1); SODIUM LEVEL 142 MEQ/L (136-145)
[2017-10-03] MEDS: levETIRAcetam 250MG TABLET (KEPPRA) PO ×2 (09:14→21:35)
[2017-10-03] MEDS: PRIMIDONE 250 MG TAB PO ×2 (09:14→21:35)
[2017-10-03] MEDS: FIDAXOMICIN 200 MG TAB (DIFICID) PO ×2 (09:14→21:35)
[2017-10-03] MEDS: IPRATROPIUM 0.06% NASAL SPRAY 15 ML (ATROVENT) ×2 (09:14→21:36)
[2017-10-03] MEDS: MULTIVITAMINS/MINERALS THERAP 1 TAB PO (09:14)
[2017-10-03] MEDS: carBAMazepine 200 MG TAB PO ×2 (09:14→21:35)
[2017-10-03] MEDS: FAMOTIDINE 20 MG TAB PO ×2 (09:14→21:35)
[2017-10-03] MEDS: CLOPIDOGREL 75 MG TAB PO (09:14)
[2017-10-03] MEDS: ENOXAPARIN 40 MG/0.4 ML SYRINGE (J1650) SC (09:15)
[2017-10-03] MEDS: GILOTRIF PO ×2 (21:35→21:36)
[2017-10-03] MEDS: MONTELUKAST 10 MG TAB PO (21:35)
[2017-10-03] MEDS: LEVOTHYROXINE 50MCG TABLET (0.05MG) PO (21:35)
[2017-10-03] MEDS: ATORVASTATIN 20 MG TAB PO (21:35)
[2017-10-04 06:14] LABS: HEMATOCRIT 33.4 % (36.0-47.0); HEMOGLOBIN 11.1 g/dl (12.0-15.5); MEAN CORPUSCULAR HEMOGLOBIN 30.7 pg (27.0-33.0); MEAN CORPUSCULAR HGB CONC 33.2 g/dl (32.0-36.5); MEAN CORPUSCULAR VOLUME 92.3 fl (80.0-96.0); PLATELET COUNT, AUTOMATED 465 10^3/uL (150-450); RED BLOOD COUNT 3.62 10^6/uL (4.00-5.40); RED CELL DISTRIBUTION WIDTH 13.6 % (11.5-14.5); WHITE BLOOD COUNT 7.6 10^3/uL (4.0-10.0)
[2017-10-04 07:13] LABS: BASO % 0.4 % (0.0-1.0); EOS # 0.3 10^3/uL (0.0-0.50); EOS % 4.6 % (0.0-3.0); IMMATURE GRANULOCYTE % 0.4 % (0-3.0); LYMPH # 1.2 10^3/uL (1.5-4.5); LYMPH % 15.8 % (24.0-44.0); MONO # 0.5 10^3/uL (0.0-0.8); MONO % 7.3 % (0.0-5.0); NEUTROPHILS # 5.3 10^3/uL (1.8-7.7); NEUTROPHILS % 71.5 % (36.0-66.0)
[2017-10-04 07:17] LABS: ANION GAP 8 MEQ/L (8-16); BLOOD UREA NITROGEN 8 MG/DL (7-18); CARBON DIOXIDE LEVEL 25 MEQ/L (21-32); CHLORIDE LEVEL 111 MEQ/L (98-107); CREATININE FOR GFR 0.82 MG/DL (0.55-1.30); GLOMERULAR FILTRATION RATE > 60.0 (>45); GLUCOSE, FASTING 87 MG/DL (70-100); POTASSIUM SERUM 4.1 MEQ/L (3.5-5.1); SODIUM LEVEL 144 MEQ/L (136-145)
[2017-10-04] MEDS: CLOPIDOGREL 75 MG TAB PO (08:16)
[2017-10-04] MEDS: IPRATROPIUM 0.06% NASAL SPRAY 15 ML (ATROVENT) (08:16)
[2017-10-04] MEDS: ENOXAPARIN 40 MG/0.4 ML SYRINGE (J1650) SC (08:16)
[2017-10-04] MEDS: PRIMIDONE 250 MG TAB PO (08:16)
[2017-10-04] MEDS: FIDAXOMICIN 200 MG TAB (DIFICID) PO (08:16)
[2017-10-04] MEDS: carBAMazepine 200 MG TAB PO (08:16)
[2017-10-04] MEDS: MULTIVITAMINS/MINERALS THERAP 1 TAB PO (08:16)
[2017-10-04] MEDS: FAMOTIDINE 20 MG TAB PO (08:16)
[2017-10-04] MEDS: levETIRAcetam 250MG TABLET (KEPPRA) PO (08:17)
== END 2017-10-04 13:40 | disposition home or self-care (01) | DRG 372 ==
LOC: M ED 00:14 → M ED INP 05:56 → M MSPAV 06:27
DX: A04.72 Enterocolitis due to Clostridium difficile, not specified as recurrent (principal); N17.9 Acute kidney failure, unspecified; E87.0 Hyperosmolality and hypernatremia; Z66 Do not resuscitate; G80.9 Cerebral palsy, unspecified; E87.6 Hypokalemia; I95.9 Hypotension, unspecified; F70 Mild intellectual disabilities; J45.909 Unspecified asthma, uncomplicated; E03.9 Hypothyroidism, unspecified; I10 Essential (primary) hypertension; E78.5 Hyperlipidemia, unspecified; G40.909 Epilepsy, unspecified, not intractable, without status epilepticus; R29.6 Repeated falls; Z85.118 Personal history of other malignant neoplasm of bronchus and lung; Z85.841 Personal history of malignant neoplasm of brain; Z85.850 Personal history of malignant neoplasm of thyroid; Z79.899 Other long term (current) drug therapy; Z79.02 Long term (current) use of antithrombotics/antiplatelets; Z91.030 Bee allergy status

== ENCOUNTER → 2017-12-15 | Outpatient (CLI) | payer MEDICARE, MEDICAID | LOC: M RAD 10:53 | DX: C34.11 Malignant neoplasm of upper lobe, right bronchus or lung (principal); R91.8 Other nonspecific abnormal finding of lung field | CPT/HCPCS: Q9967 ==

== ENCOUNTER → 2018-01-01 | Outpatient (CLI) | payer MEDICARE, MEDICAID ==
[2018-01-01 07:16] LABS: BASO % 0.4 % (0.0-1.0); EOS # 0.1 10^3/uL (0.0-0.50); EOS % 1.6 % (0.0-3.0); HEMATOCRIT 37.8 % (36.0-47.0); HEMOGLOBIN 12.3 g/dl (12.0-15.5); IMMATURE GRANULOCYTE % 0.3 % (0-3.0); LYMPH # 1.3 10^3/uL (1.5-4.5); LYMPH % 18.9 % (24.0-44.0); MEAN CORPUSCULAR HEMOGLOBIN 30.5 pg (27.0-33.0); MEAN CORPUSCULAR HGB CONC 32.5 g/dl (32.0-36.5); MEAN CORPUSCULAR VOLUME 93.8 fl (80.0-96.0); MONO # 0.5 10^3/uL (0.0-0.8); MONO % 7.1 % (0.0-5.0); NEUTROPHILS # 5.1 10^3/uL (1.8-7.7); NEUTROPHILS % 71.7 % (36.0-66.0); PLATELET COUNT, AUTOMATED 442 10^3/uL (150-450); RED BLOOD COUNT 4.03 10^6/uL (4.00-5.40); RED CELL DISTRIBUTION WIDTH 12.2 % (11.5-14.5); WHITE BLOOD COUNT 7.1 10^3/uL (4.0-10.0)
[2018-01-01 07:39] LABS: ALBUMIN 3.4 GM/DL (3.2-5.2); ALBUMIN/GLOBULIN RATIO 0.79 (1.00-1.93); ALKALINE PHOSPHATASE 117 U/L (45-117); ALT/SGPT 26 U/L (12-78); ANION GAP 7 MEQ/L (8-16); AST/SGOT 27 U/L (7-37); BILIRUBIN,TOTAL 0.2 MG/DL (0.2-1.0); BLOOD UREA NITROGEN 13 MG/DL (7-18); CALCIUM LEVEL 8.3 MG/DL (8.8-10.2); CARBON DIOXIDE LEVEL 32 MEQ/L (21-32); CHLORIDE LEVEL 105 MEQ/L (98-107); CREATININE FOR GFR 0.88 MG/DL (0.55-1.30); GLOMERULAR FILTRATION RATE > 60.0 (>45); GLUCOSE, FASTING 92 MG/DL (70-100); POTASSIUM SERUM 4.1 MEQ/L (3.5-5.1); SODIUM LEVEL 144 MEQ/L (136-145); TOTAL PROTEIN 7.7 GM/DL (6.4-8.2)
== END ==
LOC: M LAB 06:50
DX: C34.11 Malignant neoplasm of upper lobe, right bronchus or lung (principal)
CPT/HCPCS: 80053

== ENCOUNTER → 2018-03-13 | Outpatient (CLI) | payer MEDICARE, MEDICAID ==
[~2018-03-13] MED LIST changes: +ASPI81TA85 PO; +CALC500T51 PO; +CARB1TAB20 PO; +DEXA2TA PO; +DEXA4TA PO; +DEXA6TAB PO; +DIFI200T PO; +EPIP0.3I2 INJ; +FAMO20TA PO; +IPRA6SP; -ISOVUE-370 76% 100ML VIAL (Q9967) As Ordered; +ISOVUE-370 76% 100ML VIAL (Q9967) As Ordered ONE; +KEPP1TAB2 PO; +KEPP250T5 PO; +LASI40TA9 PO; +LEVO10VL IM; +LEVO50TA45 PO; +LIPI20TA PO; +LOPR1TAB6 PO; +METO25TA4 PO; +MULTCAP11 PO; +PANT40TA3 PO; +PEPC1TAB5 PO; +PLAV1TAB2 PO; +PRIMI25TA PO; +PROTPAK PO; +SING10TA32 PO; +VANC125C2 PO; +VITMTA PO; +[UNRECOGNIZED DRUG - CODE] PO; +[UNRECOGNIZED DRUG - OTHER]
--- NOTE | 2018-03-14 07:28 | REP ---
Clinical: Right upper lobe mass. Technique: Axial contrast enhanced images from the thoracic inlet to the upper abdomen with coronal and sagittal re-formations using 100 ml Isovue 370 intravenous contrast material Comparison: 12/15/2017. Findings: The right upper lobe mass has increased in size now measuring approximately 3.2 cm maximal diameter with a new area of opacity lateral to the known mass which measures approximately 2.1 x 2.9 x 1.8 cm, increased satellite nodules with a apical right lower lobe nodule measuring 10 mm (image 30), and small to moderate right pleural effusion. Mediastinal , subcarinal and hilar adenopathy appears stable. Mild bibasilar atelectasis also identified. Suspected scarring in the anterior left upper lobe remains stable. Atherosclerotic changes to the thoracic aorta and coronary arteries noted without aortic aneurysm/dissection, cardiomegaly or pericardial effusion. The esophagus appears moderately distended and soft tissue at the gastroesophageal junction cannot be excluded (images 60-68). Limited upper abdomen demonstrates normal bilateral adrenal glands. Musculoskeletal structures appear intact without focal osseous abnormality. Impression: 1. Increased size to the known right upper lobe mass with new adjacent area of consolidation/secondary lesion, increased size to few satellite lesions, and a new small to moderate right pleural effusion. 2. Mild basilar atelectasis. 3. Prominence to the esophagus with possible soft tissue at the gastroesophageal junction cannot be excluded and may warrant esophagram study. Electronically Signed by Zackary Georges MD 03/13/2018 01:50 P
== END ==
LOC: M RAD 13:07
PROVIDERS: ATTEND Internal Medicine
DX: C34.11 Malignant neoplasm of upper lobe, right bronchus or lung (principal); J90 Pleural effusion, not elsewhere classified; I70.0 Atherosclerosis of aorta; I25.10 Atherosclerotic heart disease of native coronary artery without angina pectoris; J98.11 Atelectasis; K22.9 Disease of esophagus, unspecified
CPT/HCPCS: 71260; Q9967

== ENCOUNTER → 2018-04-02 | Outpatient (CLI) | payer MEDICARE, MEDICAID ==
[~2018-04-02] MED LIST changes: -ISOVUE-370 76% 100ML VIAL (Q9967) As Ordered ONE
[2018-04-02 16:44] LABS: FREE T3 2.2 PG/ML (2.2-4.0); FREE T4 0.92 NG/DL (0.76-1.46); THYROID STIMULATING HORMONE 2.32 uIU/ML (0.358-3.740)
== END ==
LOC: M WUC 12:38
PROVIDERS: ATTEND Family Medicine
DX: E03.9 Hypothyroidism, unspecified (principal)

== ENCOUNTER → 2018-05-08 | Outpatient (CLI) | payer MEDICARE, MEDICAID ==
--- NOTE | 2018-05-08 15:12 | REPMRS ---
Patient History The patient states she had a clinical breast exam in 04/2018. Patient is postmenopausal, had previous chemotherapy at age 60, has history of thyroid ,lung and brain cancer at age 59, and is nulliparous. 3D TOMOSYNTHESIS WAS PERFORMED. Digital Woman Screen Mammo: May 08, 2018 - Exam #: [id number] Bilateral CC and MLO view(s) were taken. Technologist: Nancy Guerrero, Technologist Prior study comparison: May 04, 2017, digital woman screen mammo performed at [facility] [place]. April 12, 2016, digital woman screen mammo performed at [facility] [place]. FINDINGS: There are scattered fibroglandular densities. There has been no change in the appearance of the mammogram from the prior studies. There is a mild amount of residual fibroglandular tissue which is fairly symmetric. There is no interval development of dominant mass, architectural distortion, or clustered microcalcification suggestive of malignancy. Assessment: BI-RADS/ACR category 1 mammogram. Negative Mammogram. Recommendation Routine screening mammogram in 1 year (for women over age 40). This mammogram was interpreted with the aid of an FDA-approved computer-aided dectection system. Electronically Signed By: Zan Atkinson MD 05/08/18 [id number]
== END ==
LOC: M WHC 14:24
PROVIDERS: ATTEND Nurse Practitioner Women's Health
DX: Z12.31 Encounter for screening mammogram for malignant neoplasm of breast (principal); Z78.0 Asymptomatic menopausal state; Z92.21 Personal history of antineoplastic chemotherapy; Z85.850 Personal history of malignant neoplasm of thyroid; Z85.841 Personal history of malignant neoplasm of brain; Z85.118 Personal history of other malignant neoplasm of bronchus and lung

== ENCOUNTER → 2018-05-26 | Outpatient (CLI) | payer MEDICARE, MEDICAID ==
[~2018-05-26] MED LIST changes: -VANC125C2 PO; +VANC125C3 PO
--- NOTE | 2018-05-26 13:00 | ECHO ---
DATE OF STUDY: 05/26/2018 REFERRING PHYSICIAN: Dr. Kera Ferro INDICATION: Shortness of breath. HEIGHT: 5 feet 5 inches. WEIGHT: 188 pounds. 2-D MEASUREMENTS: Ventricular septum: 0.94 cm Posterior wall: 0.92 cm Left ventricle diastole: 4.9 cm Aortic annulus: 1.9 cm Aortic root: 3.2 cm Left atrium: 3.4 cm Inferior vena cava: 1.7 cm DOPPLER MEASUREMENTS: Aortic valve velocity: 118 cm/sec LVOT velocity: 96.1 cm/sec LVOT VTI: 21.5 cm Mitral E velocity: 82.6 cm/sec Mitral A velocity: 72.8 cm/sec Mitral deceleration time: 222 ms Very mild tricuspid regurgitation Estimated right ventricular systolic pressure 32 mmHg assuming a right atrial pressure of 5 mmHg MITRAL ANNULAR TISSUE DOPPLER: E prime septal: 7.94 cm/sec E prime lateral: 8.92 cm/sec DESCRIPTION: The rhythm was sinus. Image quality was fair. No pericardial effusion. This was a 2-D, M-mode, color flow Doppler and pulse wave Doppler examination and included mitral annular tissue Doppler. CONCLUSIONS: 1. Normal left ventricle internal dimensions and wall thickness. Normal regional LV wall motion and wall thickening. Normal LV systolic function. LVEF 60%. Normal LV diastolic function. 2. Normal echocardiogram-Doppler.
== END ==
LOC: M CARPUL 10:20
PROVIDERS: ATTEND Internal Medicine
DX: R06.02 Shortness of breath (principal)

== ENCOUNTER 2018-06-05 12:36 | Emergency (ER) | payer MEDICARE, MEDICAID ==
[~2018-06-05] VITALS: Ht 165.1 cm; Wt 84.6 kg
[2018-06-05] MEDS ORDERED: TAGR80TA (12:44)
[2018-06-05] MEDS ORDERED: predniSONE 20 MG TAB PO ONE (13:00)
[2018-06-05] MEDS ORDERED: FAMOTIDINE 20 MG TAB PO ONE (13:00)
[2018-06-05 13:22] LABS: BASO # 0.1 10^3/uL (0.0-0.2); BASO % 1.2 % (0.0-1.0); EOS # 0.2 10^3/uL (0.0-0.50); EOS % 4.6 % (0.0-3.0); HEMATOCRIT 34.6 % (36.0-47.0); HEMOGLOBIN 11.2 g/dl (12.0-15.5); LYMPH # 1.1 10^3/uL (1.5-4.5); LYMPH % 21.7 % (24.0-44.0); MEAN CORPUSCULAR HEMOGLOBIN 29.1 pg (27.0-33.0); MEAN CORPUSCULAR HGB CONC 32.4 g/dl (32.0-36.5); MEAN CORPUSCULAR VOLUME 89.9 fl (80.0-96.0); MONO # 0.5 10^3/uL (0.0-0.8); MONO % 9.1 % (0.0-5.0); NEUTROPHILS # 3.2 10^3/uL (1.8-7.7); NEUTROPHILS % 63.2 % (36.0-66.0); PLATELET COUNT, AUTOMATED 338 10^3/uL (150-450); RED BLOOD COUNT 3.85 10^6/uL (4.00-5.40)
[2018-06-05 13:51] LABS: ALBUMIN 3.3 GM/DL (3.2-5.2); ALT/SGPT 27 U/L (12-78); BILIRUBIN,DIRECT < 0.1 MG/DL (0.0-0.2); BILIRUBIN,TOTAL 0.2 MG/DL (0.2-1.0); BLOOD UREA NITROGEN 15 MG/DL (7-18); C REACTIVE PROTEIN QUANTITATIV 0.41 MG/DL (0.00-0.30); CALCIUM LEVEL 7.9 MG/DL (8.8-10.2); CARBON DIOXIDE LEVEL 31 MEQ/L (21-32); CHLORIDE LEVEL 103 MEQ/L (98-107); CREATININE FOR GFR 0.99 MG/DL (0.55-1.30); GLOMERULAR FILTRATION RATE > 60.0 (>45); GLUCOSE, FASTING 87 MG/DL (70-100); POTASSIUM SERUM 4.3 MEQ/L (3.5-5.1); SODIUM LEVEL 137 MEQ/L (136-145); TOTAL PROTEIN 8.3 GM/DL (6.4-8.2)
[2018-06-05 14:27] VITALS: BP 118/81
[2018-06-05] MEDS ORDERED: AUGM875T28 PO (14:27)
[2018-06-05] MEDS ORDERED: PRED20TA PO (14:27)
[2018-06-05] MEDS ORDERED: ZANT300T9 PO (14:27)
== END 2018-06-05 14:49 | disposition home or self-care (01) ==
LOC: M ED 12:36
DX: L25.9 Unspecified contact dermatitis, unspecified cause (principal); Z85.850 Personal history of malignant neoplasm of thyroid; Z79.899 Other long term (current) drug therapy; Z91.030 Bee allergy status

== ENCOUNTER → 2018-07-31 | Outpatient (CLI) | payer MEDICARE, MEDICAID ==
[~2018-07-31] MED LIST changes: +AUGM875T28 PO; +PRED20TA PO; +TAGR80TA; +ZANT300T9 PO
[2018-07-31 17:13] LABS: BLOOD UREA NITROGEN 11 MG/DL (7-18); CREATININE FOR GFR 0.93 MG/DL (0.55-1.30); GLOMERULAR FILTRATION RATE > 60.0 (>45)
== END ==
LOC: M WUC 12:25
PROVIDERS: ATTEND Neurological Surgery
DX: C79.31 Secondary malignant neoplasm of brain (principal)

== ENCOUNTER → 2018-10-17 | Outpatient (CLI) | payer MEDICARE, MEDICAID ==
[~2018-10-17] MED LIST changes: +ISOVUE-370 76% 100ML VIAL (Q9967) As Ordered ONE
--- NOTE | 2018-10-17 12:25 | REP ---
Clinical: Lung cancer. Technique: Axial contrast enhanced images from the thoracic inlet to the upper abdomen with coronal and sagittal re-formations using 100 ml Isovue 370 intravenous contrast material. Comparison: 03/13/2018. Findings: Right upper lobe mass with central biopsy clip measures approximately 3.5 cm maximal diameter and is contiguous with the right hilum and mediastinum where increased soft tissue is appreciated consistent with active progressive disease. Left hilar adenopathy is also appreciated. Previously noted areas of consolidation in the right upper lobe and pleural effusion have resolved. Diffuse bilateral chronic interstitial changes along with scattered fibrosis and scarring and subtle bilateral subpleural reticular nodular interstitial changes are again appreciated and essentially unchanged. Atherosclerotic changes to the thoracic aorta and coronary arteries again noted without aortic aneurysm, dissection or cardiomegaly. No pericardial effusion. Tracheobronchial tree remains patent. No pneumothorax. Surrounding osseous structures demonstrate age-related changes without focal abnormality. Limited upper abdomen demonstrates normal bilateral adrenal glands. There is a subtle relatively new hypodense lesion approaching the dome of the liver measuring approximately 11 mm (image 60) which is concerning for possible metastatic disease. Impression: 1. While the right upper lobe mass itself does not appear increased in size, there is increased soft tissue extending into the right hilum and throughout the mediastinum consistent with active progression and increased adenopathy. 2. Previously noted pleural effusion and scattered areas of consolidation have resolved. 3. The bilateral lung albrecht demonstrate changes as detailed above including scattered fibrosis and reticulonodular interstitial changes which appear relatively similar to prior examination. 4. Subtle hypodense lesion within the visualized dome of the liver concerning for metastatic focus. Electronically Signed by Zackary Georges MD 10/17/2018 12:17 P
== END ==
LOC: M RAD 11:17
PROVIDERS: ATTEND Internal Medicine Hematology & Oncology
DX: C34.11 Malignant neoplasm of upper lobe, right bronchus or lung (principal); J84.10 Pulmonary fibrosis, unspecified; K76.89 Other specified diseases of liver
CPT/HCPCS: 71260; Q9967

== ENCOUNTER → 2018-10-20 | Outpatient (CLI) | payer MEDICARE, MEDICAID ==
[~2018-10-20] MED LIST changes: -ISOVUE-370 76% 100ML VIAL (Q9967) As Ordered ONE
[2018-10-20 13:53] LABS: CREATININE FOR GFR 1.02 MG/DL (0.55-1.30); GLOMERULAR FILTRATION RATE 58.3 (>45)
== END ==
LOC: M WUC 09:20
PROVIDERS: ATTEND Neurological Surgery
DX: C79.31 Secondary malignant neoplasm of brain (principal)

== ENCOUNTER 2018-11-17 20:02 | Emergency (ER) | payer MEDICARE, MEDICAID ==
[~2018-11-17] VITALS: Ht 165.1 cm; Wt 66.0 kg
[2018-11-17 21:04] LABS: HEMATOCRIT 42.4 % (36.0-47.0); HEMOGLOBIN 13.9 g/dl (12.0-15.5); MEAN CORPUSCULAR HEMOGLOBIN 29.9 pg (27.0-33.0); MEAN CORPUSCULAR HGB CONC 32.8 g/dl (32.0-36.5); MEAN CORPUSCULAR VOLUME 91.2 fl (80.0-96.0); PLATELET COUNT, AUTOMATED 499 10^3/uL (150-450); RED BLOOD COUNT 4.65 10^6/uL (4.00-5.40); WHITE BLOOD COUNT 14.8 10^3/uL (4.0-10.0)
[2018-11-17 21:25] LABS: CALCIUM LEVEL 8.4 MG/DL (8.8-10.2); CREATININE FOR GFR 1.01 MG/DL (0.55-1.30); GLOMERULAR FILTRATION RATE 58.9 (>45); POTASSIUM SERUM 4.2 MEQ/L (3.5-5.1)
[2018-11-17] MEDS ORDERED: ISOVUE-370 76% 100ML VIAL (Q9967) As Ordered ONE (21:34)
--- NOTE | 2018-11-17 23:05 | REPVR ---
PROCEDURE INFORMATION: Exam: CT Chest Without Contrast Exam date and time: 11/17/2018 9:54 PM Clinical history: 62 years old, female; Abnormal findings; Abnormal radiologic exam of lung or chest; Additional info: Mass, possible aspiration pneumonia TECHNIQUE: Imaging protocol: Computed tomography of the chest without contrast. 3D rendering: MIP reconstructed images were created and reviewed. Radiation optimization: All CT scans at this facility use at least one of these dose optimization techniques: automated exposure control; mA and/or kV adjustment per patient size (includes targeted exams where dose is matched to clinical indication); or iterative reconstruction. COMPARISON: CT Chest with contrast 10/17/2018 11:47 AM FINDINGS: Lungs: This large mass in the right upper lobe consistent with a malignancy measures 3.7 x 4.3 x 4.4 cm increased in size in comparison to the prior study of 10/17/2018. Metallic marker/fiducial demonstrated in the central aspect of the mass. Multiple bilateral pulmonary parenchymal nodules measuring up to 9 mm in the superior segment of the right lower lobe which are new or have increased in size. Findings may represent hematogenous spread of metastatic disease. Bibasilar atelectasis. Increased consolidation at the right lung base may indicate the presence of an aspiration pneumonitis. Pleural space: Small right pleural effusion. Heart: Small pericardial effusion. Mediastinum: Dilated fluid-filled esophagus may represent achalasia. Aorta: There is fusiform dilatation of the ascending thoracic aorta which measures 4.4 cm. maximally. There is no dissection or saccular component. Lymph nodes: Mediastinal lymphadenopathy likely metastatic. Bones/joints: Degenerative spondylosis. Soft tissues: See Lungs Finding. IMPRESSION: 1. This large mass in the right upper lobe consistent with a malignancy measures 3.7 x 4.3 x 4.4 cm increased in size in comparison to the prior study of 10/17/2018. Metallic marker/fiducial demonstrated in the central aspect of the mass. 2. Multiple bilateral pulmonary parenchymal nodules measuring up to 9 mm in the superior segment of the right lower lobe which are new or have increased in size. Findings may represent hematogenous spread of metastatic disease. 3. Increased consolidation at the right lung base may indicate the presence of an aspiration pneumonitis. 4. There is fusiform dilatation of the ascending thoracic aorta which measures 4.4 cm. maximally. There is no dissection or saccular component. Electronically signed by: Cruz Dumont On 11/17/2018 23:05:29 PM
[2018-11-17] MEDS ORDERED: AUGMENTIN 875 MG TAB PO ONE (23:15)
[2018-11-17] MEDS ORDERED: AUGM875T28 PO (23:21)
[2018-11-18 00:16] VITALS: BP 121/77
--- NOTE | 2018-11-18 09:10 | REP ---
Portable chest, 09:04 p.m., single AP view with the patient semi upright: Comparison is 05/05/[address] of 10/17/2018. The patient has a known right upper lobe lung mass containing a surgical clip. There is an incomplete inspiratory effort. Interstitial markings are diffusely coarsened. This could be artifact from the incomplete inspiration or could represent interstitial infiltrates, fibrosis or combination. There are no pleural effusions. Cardiac size appears enlarged although there is magnification from portable positioning. Impression: Right upper lobe mass with a surgical clip. Interstitial coarsening, chronic versus acute versus combination. Electronically Signed by Zan Torrez MD 11/18/2018 09:01 A
== END 2018-11-18 00:17 | disposition home or self-care (01) ==
LOC: M ED 20:02
DX: J69.8 Pneumonitis due to inhalation of other solids and liquids (principal); C34.90 Malignant neoplasm of unspecified part of unspecified bronchus or lung; C79.31 Secondary malignant neoplasm of brain; R56.9 Unspecified convulsions; J44.9 Chronic obstructive pulmonary disease, unspecified; Z87.19 Personal history of other diseases of the digestive system; Z79.899 Other long term (current) drug therapy; Z91.030 Bee allergy status